=== PATIENT | male | born 1980 | race African-American/Black ===

== ENCOUNTER 2016-03-12 20:31 | Emergency (ER) | payer OTHER ==
[~2016-03-12] VITALS: Ht 170.2 cm; Wt 74.8 kg
--- NOTE | ~2016-03-12 | EKG ---
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1980 Requested By: Genesis Hidalgo Order Number: [id number] MD: Rodney Zamora Measurements Intervals [place] Rate: 69 P: 65 [place]: 215 QRS: 60 QRSD: 92 T: 24 QT: 377 QTc: 404 Interpretive Statements Sinus rhythm Prolonged [place] interval ST elev, probable normal early repol pattern No previous ECG available for comparison Electronically Signed On 03-13-2016 7:41:38 DIRECTOR MEDICAL by Rodney Zamora [email or web address] <ELECTRONICALLY SIGNED> By: Rodney Zamora MD, [facility] 03/13/16 0741 2033 32 Rodney Zamora MD, FACC /EPI
--- NOTE | ~2016-03-12 | EKG ---
[place] [address] [facility] [place] [address] ELECTROCARDIOGRAM REPORT Name: ELIZABETH AGUIRRE MAXIM Room #: [facility]#: [id number] Admission: 03/12/16 Attend Phys: Discharge: 03/12/16 Date of : [birth year] Report #: [id number] THIS REPORT FOR: //name// 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1980 Requested By: Genesis Hidalgo Order Number: [id number] MD: Rodney Zamora Measurements Intervals [place] Rate: 64 P: 73 [place]: 220 QRS: 61 QRSD: 96 T: 23 QT: 403 QTc: 416 Interpretive Statements Sinus rhythm Prolonged [place] interval ST elev, probable normal early repol pattern No previous ECG available for comparison Electronically Signed On 03-13-2016 7:42:02 THERAPEUTIC MENTOR by Rodney Zamora [email or web address] <ELECTRONICALLY SIGNED> By: Rodney Zamora MD, [facility] 03/13/16 0742 2204 03 Rodney Zamora MD, FACC /EPI
[~2016-03-12 20:31] MED LIST: ACCUNEB SO1.25 MG/1; FLONASE 0.05%50 MCG NASAL; IBUPROFEN 600600 M1 PO; IBUPROFEN 800800 MG PO; LORTAB 10 MG-3473 ML PO; NORCO 5-325 TA1 EACH PO; ONDANSETRON HCL4 M2 PO
[2016-03-12 20:59] LABS: HEMATOCRIT 40.4 % (42.0-52.0); HEMOGLOBIN 13.4 gm/dL (14.0-18.0); MCHC 33.1 % (28.0-37.0); MCV 75.6 fL (80.0-100.0); PLATELET COUNT 236 thou/uL (150-400); RBC 5.34 mil/uL (4.50-6.00); RDW 13.5 % (10.5-14.5); WBC 7.3 thou/uL (4.0-11.0)
[2016-03-12 21:02] LABS: ANION GAP 9 mmol/L (7-16); BUN 11 mg/dL (7-18); CALCIUM 9.1 mg/dL (8.5-10.1); CHLORIDE 104 mmol/L (98-107); CO2 25 mmol/L (21-32); CREATININE 1.1 mg/dL (0.6-1.3); GLUCOSE 88 mg/dL (70-99); POTASSIUM 3.8 mmol/L (3.5-5.1); SODIUM 138 mmol/L (136-145)
[2016-03-12 21:03] LABS: MANUAL DIFF YES
[2016-03-12 21:11] LABS: ALBUMIN 3.8 g/dL (3.4-5.0); ALKALINE PHOSPHATASE 63 U/L (46-116); SGOT 21 U/L (15-37); SGPT 41 U/L (30-65); TOTAL BILIRUBIN 0.3 mg/dL (<0.1-1.0); TOTAL PROTEIN 7.5 g/dL (6.4-8.2); TROPONIN-I < 0.04 ng/mL (<0.04-0.07)
[2016-03-12 21:22] LABS: ABSOLUTE NEUTROPHILS 2.9 thou/uL (1.4-8.2); TOTAL CELL COUNT 100
[2016-03-12] MEDS ORDERED: MOBIC7.5 MG PO (22:36)
[2016-03-12 22:54] VITALS: BP 105/70
== END 2016-03-12 22:56 | disposition home or self-care (01) ==
LOC: ER 20:31
PROVIDERS: Nurse Practitioner Family
DX: J45.909 Unspecified asthma, uncomplicated (principal); F17.210 Nicotine dependence, cigarettes, uncomplicated; F12.10 Cannabis abuse, uncomplicated

== ENCOUNTER 2016-09-26 23:39 | Emergency (ER) | payer OTHER ==
[~2016-09-26] VITALS: Ht 167.6 cm; Wt 72.6 kg
--- NOTE | ~2016-09-26 | EKG ---
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 : 1980 Requested By: Niko Chun Order Number: [id number] MD: Cory Stafford Measurements Intervals [place] Rate: 68 P: 74 [place]: 210 QRS: 74 QRSD: 90 T: 49 QT: 381 QTc: 406 Interpretive Statements Sinus rhythm Prolonged [place] interval Probable left atrial enlargement ST elev, probable normal early repol pattern Compared to ECG 03/12/2016 22:04:57 No significant changes Electronically Signed On 09-27-2016 15:46:36 CDT by Cory Stafford [email or web address] <ELECTRONICALLY SIGNED> By: Cory Stafford MD 09/27/16 1546 40 40 Cory Stafford MD /JULIO
[~2016-09-26 23:39] MED LIST changes: +MOBIC7.5 MG PO
[2016-09-27 00:03] LABS: ABSOLUTE NEUTROPHILS 2.7 thou/uL (1.4-8.2); BASOPHILS 1.2 % (0.0-2.0); EOSINOPHILS 2.7 % (0.0-3.0); HEMATOCRIT 39.3 % (42.0-52.0); HEMOGLOBIN 13.2 gm/dL (14.0-18.0); LYMPHOCYTES 49.6 % (24.0-44.0); MCH 25.6 pg (26.0-34.0); MCHC 33.5 g/dL (28.0-37.0); MCV 76.5 fL (80.0-100.0); MONOCYTES 6.9 % (1.0-8.0); PLATELET COUNT 239 thou/uL (150-400); POLYS 39.6 % (36.0-66.0); RBC 5.14 mil/uL (4.50-6.00); RDW 13.8 % (10.5-14.5); WBC 6.8 thou/uL (4.0-11.0)
[2016-09-27 00:05] LABS: MANUAL DIFF NO
[2016-09-27 00:07] LABS: ANION GAP 8 mmol/L (7-16); BUN 16 mg/dL (7-18); CALCIUM 8.6 mg/dL (8.5-10.1); CHLORIDE 105 mmol/L (98-107); CO2 25 mmol/L (21-32); CREATININE 1.1 mg/dL (0.7-1.3); GLUCOSE 106 mg/dL (74-106); POTASSIUM 3.5 mmol/L (3.5-5.1); SODIUM 138 mmol/L (136-145)
[2016-09-27 00:15] LABS: TROPONIN-I < 0.04 ng/mL (<0.04-0.07)
[2016-09-27 02:43] VITALS: BP 131/81
== END 2016-09-27 02:42 | disposition left against medical advice (07) ==
LOC: ER 23:39
PROVIDERS: Emergency Medicine
DX: R07.89 Other chest pain (principal); J45.909 Unspecified asthma, uncomplicated; F17.210 Nicotine dependence, cigarettes, uncomplicated; F10.99 Alcohol use, unspecified with unspecified alcohol-induced disorder; F12.10 Cannabis abuse, uncomplicated

== ENCOUNTER 2020-04-02 15:15 | Emergency (ER) | payer OTHER | END 2020-04-02 15:52 | disposition left against medical advice (07) | LOC: ER 15:15 | DX: R06.02 Shortness of breath (principal); Z53.21 Procedure and treatment not carried out due to patient leaving prior to being seen by health care provider ==

== ENCOUNTER 2021-04-10 05:17 | Emergency (ER) | payer OTHER ==
[~2021-04-10] VITALS: Ht 167.6 cm; Wt 81.7 kg
[2021-04-10 05:18] VITALS: BP 122/75
[2021-04-10] MEDS ORDERED: NOHOMEMEDICATIONS (05:24)
[2021-04-10] MEDS ORDERED: CEPHALEXIN 250250 M1 PO (05:41)
== END 2021-04-10 05:52 | disposition home or self-care (01) ==
LOC: ER 05:17
DX: R19.00 Intra-abdominal and pelvic swelling, mass and lump, unspecified site (principal); J45.909 Unspecified asthma, uncomplicated; F17.210 Nicotine dependence, cigarettes, uncomplicated